=== PATIENT | female | born 1950 | race Caucasian/White ===

== ENCOUNTER 2016-10-23 08:05 | Day surgery (SDC) | payer MEDICARE, BC ==
[~2016-10-23] VITALS: Ht 170.2 cm; Wt 125.8 kg
[2016-10-23 09:13] VITALS: BP 138/52; PULSE 68; TEMP 98.1
[2016-10-23] MEDS ORDERED: GLUCOPHAGE1000 MG PO (09:18)
[2016-10-23] MEDS ORDERED: AMARYL 2MG T2 MG/TAB PO (09:18)
[2016-10-23] MEDS ORDERED: LIPITOR20 MG PO (09:19)
[2016-10-23] MEDS ORDERED: COZAAR100 MG PO (09:19)
[2016-10-23] MEDS ORDERED: PRILOSEC 20MG20 MG PO (09:20)
[2016-10-23] MEDS ORDERED: PROZAC 20MG20 MG PO (09:20)
[2016-10-23] MEDS ORDERED: CALCIUM 600MG+D1 TAB PO (09:21)
[2016-10-23] MEDS ORDERED: ASPIRIN E.C. 8181 MG PO (09:21)
[2016-10-23] MEDS ORDERED: B-12 100 MCG PO (09:21)
[2016-10-23] MEDS ORDERED: SYNTHROID0.075 MG/T PO (09:21)
[2016-10-23] MEDS ORDERED: PYRIDIUM 100MG100 MG PO (09:22)
[2016-10-23] MEDS ORDERED: NORCO 325 MG-51 TAB PO (09:22)
[2016-10-23] MEDS ORDERED: GARLIC100 MG PO (09:22)
[2016-10-23 11:35] VITALS: BP 148/72; PULSE 71; TEMP 97.5
[2016-10-23 11:50] VITALS: BP 152/63; PULSE 74
[2016-10-23 12:05] VITALS: BP 147/72; PULSE 69
== END 2016-10-23 12:40 | disposition home or self-care (01) ==
LOC: SDCO 08:05
DX: N20.1 Calculus of ureter (principal); I10 Essential (primary) hypertension; E11.9 Type 2 diabetes mellitus without complications; Z79.84 Long term (current) use of oral hypoglycemic drugs
CPT/HCPCS: C1769; C1894; C2617; J0690; J1100; J2405; J2704; J3010; J7030; Q9967

== ENCOUNTER → 2019-04-07 | Outpatient (CLI) | payer MEDICARE, BC ==
[~2019-04-07] MED LIST: AMARYL 2MG T2 MG/TAB PO; ASPIRIN E.C. 8181 MG PO; B-12 100 MCG PO; CALCIUM 600MG+D1 TAB PO; COZAAR100 MG PO; GARLIC100 MG PO; GLUCOPHAGE1000 MG PO; LIPITOR20 MG PO; NORCO 325 MG-51 TAB PO; PRILOSEC 20MG20 MG PO; PROZAC 20MG20 MG PO; PYRIDIUM 100MG100 MG PO; SYNTHROID0.075 MG/T PO
== END ==
LOC: COL.RAD 12:55
DX: M25.512 Pain in left shoulder (principal)
CPT/HCPCS: J3301; Q9967

== ENCOUNTER → 2019-08-04 | Outpatient (CLI) | payer MEDICARE, BC | LOC: COL.RAD 13:57 | DX: M19.012 Primary osteoarthritis, left shoulder (principal) | CPT/HCPCS: J3301; Q9967 ==